=== PATIENT | female | born 1960 | race Caucasian/White ===

== ENCOUNTER 2016-12-12 16:48 | Emergency (ER) | payer BC ==
[2016-12-12 17:00] VITALS: PULSE 78; TEMP 97.9; BMI 35.1
[2016-12-12] MEDS ORDERED: ONDANSETRON 4 MG/2 ML VIAL IVPB ONE (17:06)
[2016-12-12] MEDS ORDERED: SODIUM CHLORIDE 1,000 ML IV STA (17:06)
[2016-12-12] MEDS ORDERED: morphine CARPU-JECT 4 MG/1 ML DISP.SYRIN IVPUSH ONE (17:06)
[2016-12-12] MEDS ORDERED: FAMOTIDINE 20 MG/50 ML IVPB 50 ML IVPB ONE ×2 (17:17→18:18)
[2016-12-12] MEDS ORDERED: morphine CARPU-JECT 4 MG/1 ML DISP.SYRIN ONE (17:17)
--- NOTE | 2016-12-12 17:17 | PDOC ---
[id number] is a 56 year old female with history of cholecystitis s/p cholecystectomy, GERD, who presents to the ED complaining of approximately 4 days of intermittent diffuse upper abdominal pain, sharp in nature, not radiating or migrating ranked 10/10 in intensity on ED arrival. She states her pain is not associated with eating or positional changes. The patient was seen by her PCP for this same complaint but the bloodwork results are still pending. This morning she was feeling in her usual state of health but had a sudden exacerbation around 2PM, prompting her to come to the ED. She states she has logan taking Pepcid with persistence of her symptoms. The patient denies nausea, vomiting, or diarrhea. She denies chest pain or shortness of breath. She denies fever, chills, or diaphoresis. Her pain is not consistent with her previous GERD or cholecystitis. PCP is out of hospital network. <Kalani Perez - Last Filed: 12/12/16 20:34> - General History Source: Patient Exam Limitations: No Limitations <Steve Marshall - Last Filed: 12/15/16 09:30> - General Chief Complaint: Pain Stated Complaint: ABD PAIN Time Seen by Provider: 12/12/16 17:01 Past History <Kalani Perez - Last Filed: 12/12/16 20:34> - Past Medical History Other medical history: none - Surgical History Cholecystectomy: Yes (with complication) - Psycho/Social/Smoking Cessation Hx Anxiety: No Suicidal Ideation: No Smoking History: Never smoked Have you smoked in the past 12 months: No Information on smoking cessation initiated: No Hx Alcohol Use: No Drug/Substance Use Hx: No Substance Use Type: None <Steve Marshall - Last Filed: 12/15/16 09:30> - Past Medical History Allergies/Adverse Reactions: Allergies Allergy/AdvReac Type Severity Reaction Status Date / Time No Known Allergies Allergy Verified 12/12/16 16:55 Home Medications: Ambulatory Orders NK [No Known Home Medication] 12/13/16 Review of Systems - Review of Systems Able to Perform ROS?: Yes Comments:: 12/12/16 17:26 GENERAL/CONSTITUTIONAL: No fever or chills. No weakness. HEAD, EYES, EARS, NOSE AND THROAT: No change in vision. No ear pain or discharge. No sore throat CARDIOVASCULAR: No chest pain or shortness of breath. RESPIRATORY: No cough, wheezing, or hemoptysis. GASTROINTESTINAL: +Upper abdominal pain. No nausea, vomiting, diarrhea or constipation. GENITOURINARY: No dysuria, frequency, or change in urination. MUSCULOSKELETAL: No joint or muscle swelling or pain. No neck or back pain. SKIN: No rash NEUROLOGIC: No headache, vertigo, loss of consciousness, or change in strength/ sensation. ENDOCRINE: No increased thirst. No abnormal weight change. HEMATOLOGIC/LYMPHATIC: No anemia, easy bleeding, or history of blood clots. ALLERGIC/IMMUNOLOGIC: No hives or skin allergy. <Kalani Perez - Last Filed: 12/12/16 20:34> *Physical Exam - Vital Signs Last Vital Signs Temp Pulse Resp BP Pulse Ox 97.9 F 78 18 151/94 100 12/12/16 16:56 12/12/16 16:56 12/12/16 16:56 12/12/16 16:56 12/12/16 16:56 - Physical Exam Comments: 12/12/16 17:28 GENERAL: Awake, alert, and fully oriented. Uncomfortable appearing. HEAD: No signs of trauma EYES: PERRLA, EOMI, sclera anicteric, conjunctiva clear ENT: Auricles normal inspection, hearing grossly normal, nares patent, oropharynx clear without exudates. Moist mucosa NECK: Normal ROM, supple, no lymphadenopathy, JVD, or masses LUNGS: Breath sounds equal, clear to auscultation bilaterally. No wheezes, and no crackles HEART: Regular rate and rhythm, normal S1 and S2, no murmurs, rubs or gallops ABDOMEN: Tenderness to palpation of the RUQ, epigastrium, and LUQ. Soft, normoactive bowel sounds. No guarding, no rebound. No masses EXTREMITIES: Normal range of motion, no edema. No clubbing or cyanosis. No cords, erythema, or tenderness NEUROLOGICAL: Cranial nerves II through XII grossly intact. Normal speech, normal gait SKIN: Warm, Dry, normal turgor, no rashes or lesions noted. <Kalani Perez - Last Filed: 12/12/16 20:34> - Vital Signs Last Vital Signs Temp Pulse Resp BP Pulse Ox 97.9 F 78 18 151/94 100 12/12/16 16:56 12/12/16 16:56 12/12/16 16:56 12/12/16 16:56 12/12/16 16:56 <Steve Marshall - Last Filed: 12/15/16 09:30> Heart Score/ECG Review #1 ECG reviewed & interpreted by me at: 17:40 12/12/16 17:48 NSR 68, TWI III, no std/gasper, normal axis, normal intervals, QTC 448 msec <Steve Marshall - Last Filed: 12/15/16 09:30> ED Treatment Course - LABORATORY CBC & Chemistry Diagram: 12/12/16 17:15 12/12/16 17:15 - RADIOLOGY Radiograph Interpretation: 12/12/16 20:34 RUQ US, read and reviewed by Imaging Nursery Attendant Services FINDINGS: There is fatty change in the liver. There is prior cholecystectomy. Common bile duct diameter within normal limits. 1.5 cm bilobed cystic findings noted in the body of the pancreas of undetermined significance. There is no hydronephrosis on the right. The abdominal aorta is non-aneurysmal. THIS DOCUMENT HAS BEEN ELECTRONICALLY SIGNED Richard Lamar MD 12/12/2016 20:10 EST <Kalani Perez - Last Filed: 12/12/16 20:34> - LABORATORY CBC & Chemistry Diagram: 12/12/16 17:15 12/12/16 17:15 - RADIOLOGY Radiology Studies Ordered: Category Date Time Status ABDOMEN US -LIMITED [US] Stat Ultrasound 12/12/16 17:06 Ordered <Steve Marshall - Last Filed: 12/15/16 09:30> Medical Decision Making - Medical Decision Making 12/12/16 17:15 A portion of this note was documented by scribe services under my direction. I have reviewed the details of the note, within reason, and agree with the documentation with the following case summary and management plan written by me. Patient treated in the ED. Nursing notes are reviewed and incorporated into the medical decision-making. Vital signs reviewed. Peripheral IV access obtained by the nurse, laboratory studies are drawn and sent, reviewed and interpreted by myself. Vital Signs Temp Pulse Resp BP Pulse Ox 97.9 F 78 18 151/94 100 12/12/16 16:56 12/12/16 16:56 12/12/16 16:56 12/12/16 16:56 12/12/16 16:56 56-year-old female with past medical history of cholecystitis, GERD presents to the emergency department for recurrence of right upper quadrant pain. Patient reports that in the last 2 days, the patient has been having intermittent right upper quadrant and epigastric pain that would occur 30 minutes in duration and resolve on its own. Not associated with eating, nausea, vomiting, diarrhea. Patient seen her primary care physicians with the true blood work and hadn't right upper ultrasound with the patient is not received results. Stated that at 2 PM today, the patient has had severe uncontrollable pain. Came into the ED. Denies fevers. Differential includes retained gallstone, choledocholithiasis, pancreatitis, gastritis. We'll obtain labs, right upper quadrant US. Given the severity of pain, the workup is negative, I should consider CAT scan the abdomen pelvis. 12/12/16 22:14 CBC, BMP 12/12/16 17:15 12/12/16 17:15 CMP Sodium 137 mmol/L (136-145) 12/12/16 17:15 Potassium 3.8 mmol/L (3.5-5.1) 12/12/16 17:15 Chloride 102 mmol/L (98-107) 12/12/16 17:15 Carbon Dioxide 24 mmol/L (21-32) 12/12/16 17:15 Anion Gap 11 (8-16) 12/12/16 17:15 BUN 8 mg/dL (7-18) 12/12/16 17:15 Creatinine 0.8 mg/dL (0.55-1.02) 12/12/16 17:15 Creat Clearance w eGFR > 60 (>60) 12/12/16 17:15 Random Glucose 122 mg/dL (74-106) H 12/12/16 17:15 Calcium 9.3 mg/dL (8.5-10.1) 12/12/16 17:15 Magnesium 2.0 mg/dL (1.8-2.4) 12/12/16 17:15 Total Bilirubin 0.9 mg/dL (0.2-1.0) 12/12/16 17:15 AST 251 U/L (15-37) H 12/12/16 17:15 ALT 142 U/L (12-78) H 12/12/16 17:15 Alkaline Phosphatase 165 U/L (45-117) H 12/12/16 17:15 Creatine Kinase 97 IU/L (26-192) 12/12/16 17:15 Troponin I < 0.02 ng/ml (0.00-0.05) 12/12/16 17:15 Total Protein 7.4 g/dl (6.4-8.2) 12/12/16 17:15 Albumin 3.8 g/dl (3.4-5.0) 12/12/16 17:15 Lipase 242 U/L (73-393) 12/12/16 17:15 Urine Test Results Urine Color Straw 12/12/16 19:50 Urine Appearance Clear 12/12/16 19:50 Urine pH 8.0 (5.0-8.0) 12/12/16 19:50 Ur Specific [place] 1.006 (1.001-1.035) 12/12/16 19:50 Urine Protein Negative (NEGATIVE) 12/12/16 19:50 Urine Glucose (UA) Negative (NEGATIVE) 12/12/16 19:50 Urine Ketones Negative (NEGATIVE) 12/12/16 19:50 Urine Blood Negative (NEGATIVE) 12/12/16 19:50 Urine Nitrite Negative (NEGATIVE) 12/12/16 19:50 Urine Bilirubin Negative (NEGATIVE) 12/12/16 19:50 Ur Leukocyte Esterase 1+ (NEGATIVE) H 12/12/16 19:50 Urine RBC <1 /hpf (0-3) 12/12/16 19:50 Urine WBC 7 /hpf (3-5) 12/12/16 19:50 Urine Bacteria Rare /hpf (NONE SEEN) 12/12/16 19:50 Pt's liver transaminases are slightly elevated. The patient's pain however improved dramatically with the medications. Ultrasound was obtained. Demonstrated a fatty liver and pancreatic cyst. CT scan of abdomen and pelvi performed. Possibly mild ileus or enteritis but no other findings. The patient reports feeling better. It may be possible that this was GERD, gastritis, or perhaps peptic ulcer. Will prescribe protonix, maalox. patient already has pepcid at home. I did instruct the patient and her that if her symptoms are worsening or she is developing fevers, she should return to the ER for further evaluation. I did let the patient know about her liver enzymes. Patient has a copy of the results and will follow up with her doctor. I discussed the physical exam findings, ancillary test results and final diagnoses with the patient. I answered all of the patient's questions. The patient was satisfied with the care received and felt comfortable with the discharge plan and treatment plan. The patient will call their primary care physician within 24 hours to arrange follow-up and will return to the Emergency Department with any new, persistant or worsening symptoms. <Steve Marshall - Last Filed: 12/15/16 09:30> *DC/Admit/Observation/Transfer - Attestations Scribe Attestion: 12/12/16 17:28 Documentation prepared by Kalani Perez, acting as medical records coder for Steve Marshall MD. <Kalani Perez - Last Filed: 12/12/16 20:34> - Discharge Dispostion Admit: No <Steve Marshall - Last Filed: 12/15/16 09:30> Diagnosis at time of Disposition: Abdominal pain Gastritis Qualifiers: Gastritis type: unspecified gastritis Chronicity: acute Gastritis bleeding: without bleeding Qualified Code(s): K29.00 - Acute gastritis without bleeding - Discharge Dispostion Disposition: HOME Condition at time of disposition: Improved - Referrals Referrals: Nakul Marquez [Primary Care Provider] - - Patient Instructions Printed Discharge Instructions: DI for Abdominal Pain-Adult, DI for Gastroesophageal Reflux Disease (GERD) Additional Instructions: Please take the 40 mg protonix daily. You may take 20 mg pepcid ever 12 hours and/or 30 cc of maalox every 6 hours as needed for pain. If you develop uncontrollable abdominal pain, persistent vomiting, fevers, please return to the ER. Otherwise, please go to your doctor's office. Let him/her know about the mildly elevated liver enzymes.
[2016-12-12] MEDS ORDERED: ONDANSETRON 4 MG/2 ML VIAL ONE (17:18)
[2016-12-12 17:26] LABS: BASOPHIL 0.9 % (0-2.0); MCH 26.6 pg (25.7-33.7); MCHC 34.1 g/dl (32.0-36.0); MEAN CELL VOLUME 77.9 fl (80-96); MEAN PLT VOLUME 6.7 fl (7.5-11.1); PLATELET COUNT 341 K/MM3 (134-434); RDW 14.9 % (11.6-15.6); WHITE BLOOD COUNT 10.8 K/mm3 (4.0-10.0)
[2016-12-12 17:48] LABS: INR 1.13 (0.82-1.09); PROTHROMBIN TIME (PATIENT) 12.5 SEC (9.98-11.88)
[2016-12-12 17:50] LABS: ACTIVATED PTT 37.9 SECONDS (26.9-34.4)
[2016-12-12 17:51] LABS: ALBUMIN 3.8 g/dl (3.4-5.0); ANION GAP 11 (8-16); BILIRUBIN,TOTAL 0.9 mg/dL (0.2-1.0); CALCIUM 9.3 mg/dL (8.5-10.1); CO2 24 mmol/L (21-32); CREATININE 0.8 mg/dL (0.55-1.02); GLUCOSE,RANDOM 122 mg/dL (74-106); SGOT/AST 251 U/L (15-37); SGPT/ALT 142 U/L (12-78); TOT PROT 7.4 g/dl (6.4-8.2)
[2016-12-12 17:55] LABS: ALK PHOS 165 U/L (45-117); TROPONIN I < 0.02 ng/ml (0.00-0.05)
[2016-12-12 20:22] LABS: URINE APPEARANCE CLEAR; URINE BILIRUBIN NEGATIVE (NEGATIVE); URINE BLOOD NEGATIVE (NEGATIVE); URINE COLOR STRAW; URINE GLUCOSE (UA) NEGATIVE (NEGATIVE); URINE KETONE NEGATIVE (NEGATIVE); URINE NITRITE NEGATIVE (NEGATIVE); URINE PROTEIN NEGATIVE (NEGATIVE); URINE UROBILINOGEN NEGATIVE E.U./dl (0.2-1.0)
[2016-12-12 20:23] LABS: URINE LEUK ESTERASE 1+ (NEGATIVE)
[2016-12-12 20:28] LABS: URINE BACTERIA RARE /hpf (NONE SEEN); URINE RBC <1 /hpf (0-3); URINE WBC 7 /hpf (3-5)
[2016-12-12] MEDS ORDERED: MAG HYDROX/AL HYDROX/SIMETH 30 ML UNIT-DOSE CUP PO ONE (22:15)
[2016-12-12] MEDS ORDERED: PANTOPRAZOLE 40 MG TABLET (FP) PO ONE (22:15)
[2016-12-12 22:18] VITALS: BP 131/67
[2016-12-12] MEDS ORDERED: MAG HYDROX/AL HYDROX/SIMETH 30 ML UNIT-DOSE CUP ONE (22:18)
[2016-12-12] MEDS ORDERED: PANTOPRAZOLE 40 MG TABLET (FP) ONE (22:18)
--- NOTE | 2016-12-15 07:24 | EKG ---
Test Reason : Blood Pressure : / mmHG Vent. Rate : 068 BPM Atrial Rate : 068 BPM P-R Int : 156 ms QRS Dur : 090 ms QT Int : 422 ms P-R-T Axes : 027 -02 025 degrees QTc Int : 448 ms POOR DATA QUALITY, INTERPRETATION MAY BE ADVERSELY AFFECTED NORMAL SINUS RHYTHM NORMAL ECG NO PREVIOUS ECGS AVAILABLE Confirmed by FERNANDO HYED, MARICARMEN (2016) on 12/15/2016 7:24:18 AM Referred By: Confirmed By:MRAICARMEN KING MD
== END 2016-12-12 22:25 | disposition home or self-care (01) ==
LOC: JER 16:48
PROC: 3E033GC Introduction of Other Therapeutic Substance into Peripheral Vein, Percutaneous Approach (ICD-10-PCS; principal; 2016-12-12)
PROC: 3E033NZ Introduction of Analgesics, Hypnotics, Sedatives into Peripheral Vein, Percutaneous Approach (ICD-10-PCS; 2016-12-12)
PROC: 3E033GC Introduction of Other Therapeutic Substance into Peripheral Vein, Percutaneous Approach (ICD-10-PCS; 2016-12-12)
DX: K29.00 Acute gastritis without bleeding (principal)
CPT/HCPCS: 36415; 74177-TC; 76705-TC; 80053; 81003; 81015; 82550; 83690; 83735; 84484; 85025; 85610; 85730; 93005; 93010; 99283-25

== ENCOUNTER 2016-12-13 06:43 | Inpatient (IN) | payer BC ==
[2016-12-13 06:57] VITALS: BMI 36.2
--- NOTE | 2016-12-13 07:42 | PDOC ---
History of Present Illness - General Chief Complaint: Pain, Acute Stated Complaint: ABDOMINAL PAIN Time Seen by Provider: 12/13/16 07:19 - History of Present Illness Initial Comments: 12/13/16 07:38 56-year-old female with past medical history of a cholecystectomy in 1998 She states that the surgeon accidentally cut her common duct, and she had to have an endoscopy and a stent placed in her common bile duct She states that she has done well since then She also has a prior history of a There is no history of any cardiac disease, hypertension, diabetes or hyperlipidemia Patient is complaining of upper midepigastric pain, radiating to the right upper quadrant and left upper quadrant, onset at 2 PM yesterday, 2 hours after eating at 12 noon She states the pain was constant and associated with nausea, but without vomiting or diarrhea She denies any dysuria urgency or frequency She denies any radiation to her back She denies any radiation to her chest She states the pain was constant, and then it became severe, prompting her to come to the emergency department at approximately 5:30 last evening During the course of her ER evaluation, she had a CT scan of the abdomen and pelvis with contrast, which was read by imaging spare person Reading from imaging spare person "There is no free air, there is a prior cholecystectomy, there is an incidental 8 mm cyst in the left lobe of the liver There is no hydronephrosis, there is no renal calculi There are a few mildly prominent fluid-filled small bowel loops in the lower abdomen, possibly mild ileus/enteritis There is no obstruction There is sigmoid diverticulosis without diverticulitis The appendix is normal An ultrasound was also done This was read by imaging spare person Reading from imaging spare person "There is fatty changes in the liver, there is a prior cholecystectomy The common bile duct diameter is within normal limits There is a 1.5 cm bilobed cyst/cystic findings in the bodies of the pancreas of undetermined significance There is no hydronephrosis on the right The abdominal aorta is normal Labwork from last evening was reviewed by me Significant for white count of 10.8 Elevated LFTs, with an AST of 251, and ALT of 142, and alkaline phosphatase of 165, and a total bili of 0.9 First set of cardiac enzymes were negative Lipase 242 UA essentially negative Patient states she was given pain medication in the emergency department and felt better, but as she was about to leave and by the time she got home the pain recurred and became severe again, prompting her to come back to the emergency department this morning She denies any fever with this She states the pain is unchanged and in the same location She again feels nauseated but has not had any vomiting or diarrhea Past History - Past Medical History Allergies/Adverse Reactions: Allergies Allergy/AdvReac Type Severity Reaction Status Date / Time No Known Allergies Allergy Verified 12/13/16 06:45 Home Medications: Ambulatory Orders NK [No Known Home Medication] 12/13/16 - Surgical History Cholecystectomy: Yes (with complication) - Psycho/Social/Smoking Cessation Hx Anxiety: No Suicidal Ideation: No Smoking History: Never smoked Have you smoked in the past 12 months: No Hx Alcohol Use: No Drug/Substance Use Hx: No Substance Use Type: None Review of Systems - Review of Systems Able to Perform ROS?: Yes Comments:: 12/13/16 07:46 12 point review of systems is as per history of present illness and otherwise negative *Physical Exam - Vital Signs Last Vital Signs Temp Pulse Resp BP Pulse Ox 98.4 F 78 18 149/82 99 12/13/16 06:54 12/13/16 06:54 12/13/16 06:54 12/13/16 06:54 12/13/16 06:54 - Physical Exam Comments: 12/13/16 07:46 Physical exam Last Vital Signs Temp Pulse Resp BP Pulse Ox 98.4 F 78 18 149/82 99 12/13/16 06:54 12/13/16 06:54 12/13/16 06:54 12/13/16 06:54 12/13/16 06:54 GENERAL: The patient is awake, alert, and fully oriented, and in no apparent distress. HEAD: Normal with no signs of trauma. EYES: sclera anicteric, conjunctiva are normal. ENT: Moist mucous membranes. NECK: Normal range of motion, supple LUNGS: Breath sounds equal, clear to auscultation bilaterally. No wheezes, and no crackles. HEART: Regular rate and rhythm, normal S1 and S2 without murmur, rub or gallop. ABDOMEN: The abdomen is soft, with hypoactive but present bowel sounds There is upper midepigastric and right upper quadrant tenderness, and to a lesser extent left upper quadrant tenderness to palpation without guarding or rebound There is no hepatosplenomegaly There is no abdominal tenderness below the umbilicus There is no lower abdominal tenderness There is no CVA tenderness EXTREMITIES: Normal range of motion, no edema. No clubbing or cyanosis. No cords, erythema, or tenderness. NEUROLOGICAL: Cranial nerves II through XII grossly intact. Normal speech, normal gait. PSYCH: Normal mood, normal affect. SKIN: Warm, Dry, normal turgor, no rashes or lesions noted. ED Treatment Course - LABORATORY CBC & Chemistry Diagram: 12/13/16 08:03 12/13/16 08:03 Medical Decision Making - Medical Decision Making 12/13/16 10:00 I reviewed yesterday's ultrasound with remote sensing technologist The common bile duct and the pancreatic duct were seen, and the were normal on yesterday evenings ultrasound 12/13/16 10:01 LFTs are increasing when compared to yesterday's lab work Laboratory Results - last 24 hr 12/13/16 12/13/16 08:03 08:03 WBC 10.2 H RBC 5.01 Hgb 13.1 Hct 38.9 MCV 77.7 L MCHC 33.7 RDW 15.2 Plt Count 314 MPV 6.8 L Sodium 139 Potassium 4.1 Chloride 103 Carbon Dioxide 24 Anion Gap 12 BUN 6 L D Creatinine 0.7 Creat Clearance w eGFR > 60 Random Glucose 111 H Calcium 8.9 Total Bilirubin 1.6 H D AST 522 H D ALT 552 H D Alkaline Phosphatase 211 H D Creatine Kinase 90 Troponin I < 0.02 Total Protein 7.2 Albumin 3.6 Lipase 137 12/13/16 10:01 EKG Normal sinus rhythm 70, left axis deviation -2 Normal AV and IV conduction time Normal QTC Otherwise normal EKG 12/13/16 10:37 In light of the increasing LFTs, I did reorder the ultrasound Chest x-ray and ultrasound pending at this time Case discussed with hospitalist-will admit 12/13/16 12:09 CXR - NAD Given findings, may need MRI Awaiting GI callback *DC/Admit/Observation/Transfer Diagnosis at time of Disposition: Abdominal pain, Abnormal LFTs, Pancreatic abnormality - Discharge Dispostion Admit: Yes
[2016-12-13] MEDS ORDERED: SODIUM CHLORIDE 1,000 ML IV STA (07:45)
[2016-12-13] MEDS ORDERED: HYDROmorphone HCL CARPU-JECT 1 MG/1 ML DISP.SYRIN IVPUSH ONE (07:45)
[2016-12-13] MEDS ORDERED: ONDANSETRON 4 MG/2 ML VIAL IVPB ONE (07:46)
[2016-12-13] MEDS ORDERED: HYDROmorphone HCL CARPU-JECT 1 MG/1 ML DISP.SYRIN ONE (07:49)
[2016-12-13] MEDS ORDERED: ONDANSETRON 4 MG/2 ML VIAL ONE (07:50)
[2016-12-13 08:35] LABS: MCH 26.2 pg (25.7-33.7); MCHC 33.7 g/dl (32.0-36.0); MEAN CELL VOLUME 77.7 fl (80-96); MEAN PLT VOLUME 6.8 fl (7.5-11.1); PLATELET COUNT 314 K/MM3 (134-434); RDW 15.2 % (11.6-15.6); WHITE BLOOD COUNT 10.2 K/mm3 (4.0-10.0)
[2016-12-13 09:02] LABS: ALBUMIN 3.6 g/dl (3.4-5.0); ANION GAP 12 (8-16); CALCIUM 8.9 mg/dL (8.5-10.1); CO2 24 mmol/L (21-32); GLUCOSE,RANDOM 111 mg/dL (74-106)
[2016-12-13 09:08] LABS: ALK PHOS 211 U/L (45-117); BILIRUBIN,TOTAL 1.6 mg/dL (0.2-1.0); CREATININE 0.7 mg/dL (0.55-1.02); TOT PROT 7.2 g/dl (6.4-8.2); TROPONIN I < 0.02 ng/ml (0.00-0.05)
[2016-12-13 09:14] LABS: SGOT/AST 522 U/L (15-37); SGPT/ALT 552 U/L (12-78)
--- NOTE | 2016-12-13 11:10 | HP ---
CHIEF COMPLAINT: Abdominal pain RUQ and LUQ painx 24 hours PCP: Dr. Mancilla [facility] # cell [phone] HISTORY OF PRESENT ILLNESS: This 56 yr old female presents with epigastric pain and right UQ pain. She has a significant history of cholecystectomy in 1998 with a "cut" to her CBD requiring a stent via endoscopy post op. Since then she has done well. Now with pain has been going on for over week and she has been seen by her PMD at [facility] where she underwent an abd u/s and CT at [facility]. she was waiting for these results by her PMD however she developed worsening pain on 12/12 and was evaluated in [facility] ER. During her ER visit on 12/12 she underwent a u/s with noted 1.5 cm bilobed cyst findings in the pancreas, labs and CT with noted fatty liver, which were with benign findings. She was treated with morphine and discharged with instructions to follow up with her PMD. Once the morphine pain meds wore off, her pain was much worse and she returned to the ER this morning. During this evaluation she was noted to have marked elevated LFT, increased pain. She is now in for admission to [facility] surg and a consult with Dr. Roberts. During my admission, I received a phone call from Dr. Mancilla, her PMD who notified me re the radiology findings as an OP with a .9 x.9 x 1.3 "cyst in the pancreas with suspicions of ?neoplasm vs pseudocyst. She was unable to send report to be attached to report in [facility]. ER course was notable for: (1) abd pain RUQ (2) elevated LFT (3) cystic findings on pancreas Recent Travel: PAST MEDICAL HISTORY: none PAST SURGICAL HISTORY: cholecystectomy with a CBD stent c section 2 ectopic Social History: Smoking:denies Alcohol:denies Drugs: denies Family History: Allergies No Known Allergies Allergy (Verified 12/13/16 06:45) HOME MEDICATIONS: Home Medications Medication Instructions Recorded NK [No Known Home Medication] 12/13/16 REVIEW OF SYSTEMS CONSTITUTIONAL: Absent: fever, chills, diaphoresis, generalized weakness, malaise, loss of appetite, weight change HEENT: Absent: rhinorrhea, nasal congestion, throat pain, throat swelling, difficulty swallowing, mouth swelling, ear pain, eye pain, visual changes CARDIOVASCULAR: Absent: chest pain, syncope, palpitations, irregular heart rate, lightheadedness , peripheral edema RESPIRATORY: Absent: cough, shortness of breath, dyspnea with exertion, orthopnea, wheezing, stridor, hemoptysis GASTROINTESTINAL: Absent: abdominal pain, abdominal distension, nausea, vomiting, diarrhea, constipation, melena, hematochezia GENITOURINARY: Absent: dysuria, frequency, urgency, hesitancy, hematuria, flank pain, genital pain MUSCULOSKELETAL: Absent: myalgia, arthralgia, joint swelling, back pain, neck pain SKIN: Absent: rash, itching, pallor HEMATOLOGIC/IMMUNOLOGIC: Absent: easy bleeding, easy bruising, lymphadenopathy, frequent infections ENDOCRINE: Absent: unexplained weight gain, unexplained weight loss, heat intolerance, cold intolerance NEUROLOGIC: Absent: headache, focal weakness or paresthesias, dizziness, unsteady gait, seizure, mental status changes, bladder or bowel incontinence PSYCHIATRIC: Absent: anxiety, depression, suicidal or homicidal ideation, hallucinations. PHYSICAL EXAMINATION GENERAL: Awake, alert, and fully oriented, in mild pain acute distress. HEAD: Normal with no signs of trauma. EYES: Pupils equal, round and reactive to light, extraocular movements intact, sclera anicteric, conjunctiva clear. No lid lag. EARS, NOSE, THROAT: Ears normal, nares patent, oropharynx clear without exudates. Moist mucous membranes. NECK: Normal range of motion, supple without lymphadenopathy, JVD, or masses. LUNGS: Breath sounds equal, clear to auscultation bilaterally. No wheezes, and no crackles. No accessory muscle use. HEART: Regular rate and rhythm, normal S1 and S2 without murmur, rub or gallop. ABDOMEN: Soft, + RUQ and epigastric tender, not distended, normoactive bowel sounds, no guarding, no rebound, no masses. No hepatomegaly or splenomegaly. MUSCULOSKELETAL: Normal range of motion at all joints. No bony deformities or tenderness. No CVA tenderness. UPPER EXTREMITIES: 2+ pulses, warm, well-perfused. No cyanosis. No clubbing. No peripheral edema. LOWER EXTREMITIES: 2+ pulses, warm, well-perfused. No calf tenderness. No peripheral edema. NEUROLOGICAL: Cranial nerves II-XII intact. Normal speech. Normal gait. PSYCHIATRIC: Cooperative. Good eye contact. Appropriate mood and affect. SKIN: Warm, dry, normal turgor, no rashes or lesions noted, normal capillary refill. ASSESSMENT/PLAN: 56 yr old obese female with elevated LFT and abd pain 1. abd pain -pain management -continue pain medications 2. elevated LFT -consult GI, Dr. Roberts -monitor labs, LFT -NPO with IVF 3. DVT and GI prophalatic -ambulate -npo 4. cystic lesion on pancreas -MRCP -ABT Visit type - Emergency Visit Emergency Visit: Yes ED Registration Date: 12/13/16 Care time: The patient presented to the Emergency Department on the above date and was hospitalized for further evaluation of their emergent condition. - New Patient This patient is new to me today: Yes Date on this admission: 12/13/16 - Critical Care Critical Care patient: No
[2016-12-13 12:01] LABS: URINE APPEARANCE CLEAR; URINE BILIRUBIN NEGATIVE (NEGATIVE); URINE COLOR LTYELLOW; URINE GLUCOSE (UA) NEGATIVE (NEGATIVE); URINE KETONE TRACE (NEGATIVE); URINE NITRITE NEGATIVE (NEGATIVE); URINE PROTEIN NEGATIVE (NEGATIVE); URINE UROBILINOGEN NEGATIVE E.U./dl (0.2-1.0)
[2016-12-13 12:23] LABS: URINE BLOOD 1+ (NEGATIVE); URINE LEUK ESTERASE 2+ (NEGATIVE)
[2016-12-13 12:25] LABS: URINE MUCUS RARE; URINE RBC 1 /hpf (0-3); URINE WBC 7 /hpf (3-5)
[2016-12-13] MEDS ORDERED: morphine CARPU-JECT 4 MG/1 ML DISP.SYRIN ONE (12:28)
[2016-12-13] MEDS ORDERED: PIPERACILLIN/TAZOB 3.375 GM/50 ML PRE-DOCKED IVPB ONE (12:30)
[2016-12-13] MEDS ORDERED: morphine CARPU-JECT 4 MG/1 ML DISP.SYRIN IVPUSH ONE (12:36)
[2016-12-13] MEDS ORDERED: HYDROmorphone HCL CARPU-JECT 1 MG/1 ML DISP.SYRIN IVPB PRN (13:13)
[2016-12-13] MEDS: SODIUM CHLORIDE 1,000 ML IV SCH (13:54)
--- NOTE | 2016-12-13 14:38 | CON.GI ---
Consult Consult Specialty:: GI Referred by:: Dr Pierce Reason for Consultation:: Abdominal pain - History of Present Illness Chief Complaint: Abdominal pain. History of Present Illness: 56 F with h/o cholecystectomy 1998 complicated by CBD injury necessitation stent placement. She did well post-op but a week ago, she developed epigastric/ RUQ pain which became severe. She came to the [facility] ER and was noted to have LFT' s in the 4-5 x normal range but a normal t bili and a normal CT. She also had mild leukocytosis. She was sent home on a PPI and told to return if the pain became worse. She returned the following day with markedly elevated LFT's and now with a t bili of 1.6. I ordered an MRI/MRCP which shows a dilated CBD, a stone in the distal CBD and 4 pancreatic cysts, possibly IPMN's. - History Source History Provided By: Patient, Medical Record Limitations to Obtaining History: No Limitations - Past Medical History Hepatobiliary: Yes: Cholelithiasis - Past Surgical History Past Surgical History: Yes: Cholecystectomy (1998 with CBD injury requiring stent) - Alcohol/Substance Use Hx Alcohol Use: No - Smoking History Smoking history: Never smoked Have you smoked in the past 12 months: No Home Medications - Allergies Allergies/Adverse Reactions: Allergies Allergy/AdvReac Type Severity Reaction Status Date / Time No Known Allergies Allergy Verified 12/13/16 06:45 - Home Medications Home Medications: Ambulatory Orders NK [No Known Home Medication] 12/13/16 Physical Exam-GI Vital Signs: Vital Signs Temperature 98.4 F 12/13/16 06:54 Pulse Rate 84 12/13/16 12:00 Respiratory Rate 18 12/13/16 12:00 Blood Pressure 145/83 12/13/16 12:00 O2 Sat by Pulse Oximetry (%) 100 12/13/16 12:00 Constitutional: Yes: Obese HENT: Yes: Normocephalic Neck: Yes: Supple Cardiovascular: Yes: Regular Rate and Rhythm Respiratory: Yes: CTA Bilaterally Gastrointestinal Inspection: Yes: WNL ...Auscultate: Yes: Normoactive Bowel Sounds ...Palpate: Yes: Soft, Tenderness, Epigastium Labs: CBC, BMP 12/13/16 08:03 12/13/16 08:03 Hepatic Panel Total Bilirubin 1.6 mg/dL (0.2-1.0) H D 12/13/16 08:03 AST 522 U/L (15-37) H D 12/13/16 08:03 ALT 552 U/L (12-78) H D 12/13/16 08:03 Alkaline Phosphatase 211 U/L (45-117) H D 12/13/16 08:03 Albumin 3.6 g/dl (3.4-5.0) 12/13/16 08:03 Imaging - Results MRI: Report Reviewed (Patient with CBD stone and 4 pancreatic cysts possibly IPMNs) Assessment/Plan 56 F with above history admitted with CBD stone and intra-pancreatic cysts PLAN: IV AbRx Clear liquid diet ERCP possibly tomorrow Stat coags Will need EUS as outpatient to address pancreatic lesions. CA19-9 Plan discussed with patient and she agrees
[2016-12-13 17:08] LABS: INR 1.3 (0.82-1.09); PROTHROMBIN TIME (PATIENT) 14.4 SEC (9.98-11.88)
[2016-12-13] MEDS: PIPERACILLIN/TAZOB 3.375 GM 50 ML IVPB SCH (18:05)
[2016-12-14] MEDS: PIPERACILLIN/TAZOB 3.375 GM 50 ML IVPB SCH ×3 (01:47→18:29)
[2016-12-14] MEDS: SODIUM CHLORIDE 1,000 ML IV SCH ×2 (01:47→10:40)
[2016-12-14 07:55] LABS: BASOPHIL 0.7 % (0-2.0); EOSINOPHIL 0.9 % (0-4.5); MCH 26.4 pg (25.7-33.7); MCHC 33.4 g/dl (32.0-36.0); MEAN PLT VOLUME 6.8 fl (7.5-11.1); NEUTROPHILS 76.2 % (42.8-82.8); PLATELET COUNT 228 K/MM3 (134-434); RDW 15.2 % (11.6-15.6); WHITE BLOOD COUNT 6.6 K/mm3 (4.0-10.0)
[2016-12-14 08:10] LABS: SGOT/AST 180 U/L (15-37)
[2016-12-14 08:19] LABS: ALBUMIN 3.2 g/dl (3.4-5.0); ALK PHOS 214 U/L (45-117); AMYLASE 46 U/L (25-115); ANION GAP 12 (8-16); BILIRUBIN,TOTAL 1.1 mg/dL (0.2-1.0); CALCIUM 8.6 mg/dL (8.5-10.1); CO2 24 mmol/L (21-32); CREATININE 0.6 mg/dL (0.55-1.02); GLUCOSE,RANDOM 101 mg/dL (74-106); PHOSPHOROUS 2.4 mg/dL (2.5-4.9); SGPT/ALT 340 U/L (12-78); TOT PROT 6.3 g/dl (6.4-8.2)
--- NOTE | 2016-12-14 16:00 | PN ---
Physical Exam: SUBJECTIVE: Patient seen and examined. States she feels well, denies abdominal pain. OBJECTIVE: Patient denies any abdominal pain, discomfort Vital Signs Period Temp Pulse Resp BP Sys/Tim Pulse Ox Last 24 Hr 99.6 F-99.9 F 73-89 18-20 127-131/55-74 93 GENERAL: The patient is awake, alert, and fully oriented, in no acute distress. HEAD: Normal with no signs of trauma. EYES: PERRL, extraocular movements intact, sclera anicteric, conjunctiva clear. No ptosis. ENT: Ears normal, nares patent, oropharynx clear without exudates, moist mucous membranes. NECK: Trachea midline, full range of motion, supple. LUNGS: Breath sounds equal, clear to auscultation bilaterally, no wheezes, no crackles, no accessory muscle use. HEART: Regular rate and rhythm ABDOMEN: Soft, nontender, nondistended, no abdominal pain on exam rebound, no hepatosplenomegaly, no masses. EXTREMITIES: warm, well-perfused, no edema. NEUROLOGICAL: Normal speech, gait not observed. PSYCH: Normal mood, normal affect. SKIN: Warm, dry, normal turgor, no rashes or lesions noted Laboratory Results - last 24 hr 12/13/16 12/14/16 12/14/16 15:50 05:31 05:31 WBC 6.6 D RBC 4.63 Hgb 12.2 Hct 36.6 MCV 79.0 L MCHC 33.4 RDW 15.2 Plt Count 228 D MPV 6.8 L Neutrophils % 76.2 Lymphocytes % 10.9 D Monocytes % 11.3 H Eosinophils % 0.9 Basophils % 0.7 INR 1.30 H Sodium 136 Potassium 3.7 Chloride 100 Carbon Dioxide 24 Anion Gap 12 BUN 5 L Creatinine 0.6 Creat Clearance w eGFR > 60 Random Glucose 101 Calcium 8.6 Phosphorus 2.4 L Magnesium 2.0 Total Bilirubin 1.1 H D AST 180 H D ALT 340 H D Alkaline Phosphatase 214 H Total Protein 6.3 L Albumin 3.2 L Total Amylase 46 Lipase 125 Active Medications Generic Name Dose Route Start Last Admin Trade Name Freq PRN Reason Stop Dose Admin Hydromorphone HCl 1 mg 12/13/16 13:13 Dilaudid Injection - IVPB Q6H PRN PAIN Sodium Chloride 1,000 mls @ 125 mls/hr 12/13/16 11:15 12/14/16 10:40 Normal Saline - IV 125 mls/hr ASDIR ANA Administration Piperacillin Sod/Tazobactam Sod 50 mls @ 100 mls/hr 12/13/16 18:00 12/14/16 10: 38 Zosyn 3.375gm Ivpb (Pre-Docked) IVPB 100 mls/hr Q8H-IV ANA Administration Protocol ASSESSMENT/PLAN: Patient is an 56 yr old female with a past cholecystectomy in 1998 with a "cut" to her CBD requiring a stent via endoscopy post op. She presented to the ED on 12/13/2016 with epigastric pain and RUQ pain for over a week and she has been seen by her PMD at [facility]. During this admission, she was noted to have marked elevated LFT, and increased abdominal pain. Imaging: MRCP 12/13/2016 - s/p cholecystectomy for pancreatic cysts are noted Chest Xray 12/13/2016 - no acute pathology GI: Abdominal Pain/Elevated LFTs - acute A/P: AST 522> 180 , ALT 552 >340 On Zosyn q8 ERCP tomorrow as per GI Tolerating clears Abdominal pain improving, as per patient Monitor pain levels, IV hydration with NS @ 125cc/hr Dilaudid for pain PRN F.E.N. Fludis: NS 125cc/hr Electrolytes within normal limits Nutrition: clears - advance per GI NPO @ midnight for ERCP in a.m. Prophylaxis: GI: Protonix IV DVT: SCDs, ambulation Disposition: Full Code. Requires inpatient hospitalization. Visit type - Emergency Visit Emergency Visit: Yes ED Registration Date: 12/13/16 Care time: The patient presented to the Emergency Department on the above date and was hospitalized for further evaluation of their emergent condition. - New Patient This patient is new to me today: Yes Date on this admission: 12/15/16 - Critical Care Critical Care patient: No - Discharge Referral Referred to [facility] No
[2016-12-14] MEDS: PANTOPRAZOLE SODIUM 100 ML IVPB SCH (17:29)
--- NOTE | 2016-12-14 19:15 | PN ---
GI Progress Note - Objective Vital Signs: Vital Signs Temperature 98.9 F 12/14/16 17:31 Pulse Rate 77 12/14/16 17:31 Respiratory Rate 20 12/14/16 17:31 Blood Pressure 149/81 12/14/16 17:31 O2 Sat by Pulse Oximetry (%) 97 12/14/16 09:00 Labs: CBC, BMP 12/14/16 05:31 12/14/16 05:31 INR, PTT INR 1.30 (0.82-1.09) H 12/13/16 15:50
--- NOTE | 2016-12-14 20:49 | PN ---
GI Progress Note Subjective: chart reviewed patient seen and examined. The abdominal pain has resolved. She is very hungry. - Objective Vital Signs: Vital Signs Temperature 98.9 F 12/14/16 17:31 Pulse Rate 77 12/14/16 17:31 Respiratory Rate 20 12/14/16 17:31 Blood Pressure 149/81 12/14/16 17:31 O2 Sat by Pulse Oximetry (%) 97 12/14/16 09:00 Constitutional: Other (over weight) Eyes: No: Sclera Icterus HENT: Yes: Atraumatic Neck: Yes: Supple Respiratory: Yes: CTA Bilaterally ...Palpate: Yes: Soft. No: Firm/Rigid, Guarding, Hepatomegaly, Mass, Pulsatile Mass, Splenomegaly, Tenderness Labs: CBC, BMP 12/14/16 05:31 12/14/16 05:31 INR, PTT INR 1.30 (0.82-1.09) H 12/13/16 15:50 Problem List - Problems (1) Common bile duct stone Assessment/Plan: R> for ERCP tomorrow, risk including pancreatitis was discussed at length, informed consent was obtained Code(s): K80.50 - CALCULUS OF BILE DUCT W/O CHOLANGITIS OR CHOLECYST W/O OBST (2) Pancreatic cyst Assessment/Plan: will discuss in am she will need an EUS as an out patient Code(s): K86.2 - CYST OF PANCREAS
[2016-12-14] MEDS ORDERED: KETOROLAC TROMETHAMINE 30 MG/1 ML VIAL IVPUSH ONE (21:02)
[2016-12-15] MEDS: PIPERACILLIN/TAZOB 3.375 GM 50 ML IVPB SCH ×3 (01:58→17:21)
[2016-12-15] MEDS: SODIUM CHLORIDE 1,000 ML IV SCH ×4 (06:49→23:53)
--- NOTE | 2016-12-15 07:24 | EKG ---
Test Reason : Blood Pressure : / mmHG Vent. Rate : 070 BPM Atrial Rate : 070 BPM P-R Int : 156 ms QRS Dur : 088 ms QT Int : 396 ms P-R-T Axes : 034 -02 017 degrees QTc Int : 427 ms NORMAL SINUS RHYTHM BORDERLINE LOW VOLTAGE QRS BORDERLINE ECG WHEN COMPARED WITH ECG OF 12-DEC-2016 17:37, NO SIGNIFICANT CHANGE WAS FOUND Confirmed by MARICARMEN KING MD ([id number]) on 12/15/2016 7:24:03 AM Referred By: Confirmed By:MARICARMEN KING MD
[2016-12-15 08:14] LABS: BASOPHIL 0.9 % (0-2.0); EOSINOPHIL 5.4 % (0-4.5); MCH 26.6 pg (25.7-33.7); MCHC 33.8 g/dl (32.0-36.0); MEAN CELL VOLUME 78.6 fl (80-96); MEAN PLT VOLUME 6.4 fl (7.5-11.1); NEUTROPHILS 56.4 % (42.8-82.8); PLATELET COUNT 238 K/MM3 (134-434); RDW 14.9 % (11.6-15.6); WHITE BLOOD COUNT 6.1 K/mm3 (4.0-10.0)
[2016-12-15 08:46] LABS: ALK PHOS 196 U/L (45-117); AMYLASE 43 U/L (25-115); ANION GAP 10 (8-16); BILIRUBIN,TOTAL 0.7 mg/dL (0.2-1.0); CALCIUM 8.5 mg/dL (8.5-10.1); CO2 24 mmol/L (21-32); CREATININE 0.6 mg/dL (0.55-1.02); GLUCOSE,RANDOM 97 mg/dL (74-106); SGOT/AST 66 U/L (15-37); SGPT/ALT 220 U/L (12-78); TOT PROT 6.4 g/dl (6.4-8.2)
[2016-12-15] MEDS: PANTOPRAZOLE SODIUM 100 ML IVPB SCH (10:10)
[2016-12-15] MEDS: KCL 10 MEQ IVPB 100 ML IVPB SCH ×2 (10:41→15:30)
[2016-12-15] MEDS ORDERED: ONDANSETRON 4 MG/2 ML VIAL ONE (12:50)
[2016-12-15] MEDS ORDERED: DEXAMETHASONE SOD PHOSPHATE 10 MG/1 ML VIAL ONE (12:50)
[2016-12-15] MEDS ORDERED: MIDAZOLAM HCL 2 MG/2 ML SINGLE DOSE VIAL ONE (12:50)
[2016-12-15] MEDS ORDERED: SUCCINYLCHOLINE CHLORIDE 200 MG/10 ML VIAL ONE (12:50)
[2016-12-15] MEDS ORDERED: INDOMETHACIN 50 MG RECTAL SUPPOSITORY PR ONE ×3 (13:13→14:12)
[2016-12-15] MEDS ORDERED: IOHEXOL 300 MG/ML INFUS..BTL IV ONE (13:52)
[2016-12-15] MEDS ORDERED: HYDROmorphone HCL CARPU-JECT 1 MG/1 ML DISP.SYRIN IVPB PRN (15:47)
--- NOTE | 2016-12-15 16:47 | PN ---
Physical Exam: SUBJECTIVE: Patient seen and examined. She is s/p ERCP today. Was seen prior to procedure, states she feels well, continues to deny any abdominal pain or discomfort. OBJECTIVE: CA 19-19 levels elevated s/p ERCP with stone removal Vital Signs Period Temp Pulse Resp BP Sys/Tim Pulse Ox Last 24 Hr 98.0 F-99.5 F 66-100 18-20 119-149/56-97 91-97 GENERAL: The patient is awake, alert, and fully oriented, in no acute distress. HEAD: Normal with no signs of trauma. EYES: PERRL, extraocular movements intact, sclera anicteric, conjunctiva clear. No ptosis. ENT: Ears normal, nares patent, oropharynx clear without exudates, moist mucous membranes. NECK: Trachea midline, full range of motion, supple. LUNGS: Breath sounds equal, clear to auscultation bilaterally, no wheezes, no crackles, no accessory muscle use. HEART: Regular rate and rhythm ABDOMEN: Soft, nontender, nondistended, no abdominal pain on exam rebound, no hepatosplenomegaly, no masses. EXTREMITIES: warm, well-perfused, no edema. NEUROLOGICAL: Normal speech, gait not observed. PSYCH: Normal mood, normal affect. SKIN: Warm, dry, normal turgor, no rashes or lesions noted Laboratory Results - last 24 hr 12/13/16 12/15/16 12/15/16 15:00 07:45 07:45 WBC 6.1 RBC 4.52 Hgb 12.0 Hct 35.5 MCV 78.6 L MCHC 33.8 RDW 14.9 Plt Count 238 MPV 6.4 L Neutrophils % 56.4 D Lymphocytes % 20.2 D Monocytes % 17.1 H Eosinophils % 5.4 H D Basophils % 0.9 Sodium 142 Potassium 3.3 L Chloride 108 H Carbon Dioxide 24 Anion Gap 10 BUN 6 L Creatinine 0.6 Creat Clearance w eGFR > 60 Random Glucose 97 Calcium 8.5 Total Bilirubin 0.7 D AST 66 H D ALT 220 H D Alkaline Phosphatase 196 H Total Protein 6.4 Albumin 3.0 L Total Amylase 43 Lipase 132 CA 19-9 Antigen 62 H Active Medications Generic Name Dose Route Start Last Admin Trade Name Freq PRN Reason Stop Dose Admin Hydromorphone HCl 1 mg 12/15/16 15:47 Dilaudid Injection - IVPB Q6H PRN PAIN Pantoprazole Sodium 100 mls @ 200 mls/hr 12/16/16 10:00 Protonix 40mg Ivpb (Pre-Docked) IVPB DAILY ANA Sodium Chloride 1,000 mls @ 125 mls/hr 12/15/16 15:47 12/15/16 16:05 Normal Saline - IV Not Given ASDIR ANA Piperacillin Sod/Tazobactam Sod 50 mls @ 100 mls/hr 12/15/16 18:00 Zosyn 3.375gm Ivpb (Pre-Docked) IVPB Q8H-IV ANA Protocol ASSESSMENT/PLAN: Patient is an 56 yr old female with a past cholecystectomy in 1998 with a "cut" to her CBD requiring a stent via endoscopy post op. She presented to the ED on 12/13/2016 with epigastric pain and RUQ pain for over a week and she has been seen by her PMD at [facility]. During this admission, she was noted to have marked elevated LFT, and increased abdominal pain. She is s/p ERCP today with spineterotomy with stone removal. Her CA 19-9 is also elevated @ 62. 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 Fludis: NS 125cc/hr Electrolytes: hyponatremia - 2 K riders Nutrition: clears - advance per GI Prophylaxis: GI: Protonix IV DVT: SCDs, ambulation Disposition: Full Code. Needs GI clearance prior to d/c. Requires inpatient hospitalization. Visit type - Emergency Visit Emergency Visit: Yes ED Registration Date: 12/13/16 Care time: The patient presented to the Emergency Department on the above date and was hospitalized for further evaluation of their emergent condition. - New Patient This patient is new to me today: No - Critical Care Critical Care patient: No - Discharge Referral Referred to [facility] No
[2016-12-15] MEDS ORDERED: POTASSIUM CHLORIDE TABS 20 MEQ TABLET.ER (FP) PO ONE (17:14)
[2016-12-16] MEDS: PIPERACILLIN/TAZOB 3.375 GM 50 ML IVPB SCH ×2 (02:35→09:15)
[2016-12-16 08:11] LABS: ALBUMIN 2.9 g/dl (3.4-5.0); ANION GAP 9 (8-16); BILIRUBIN,TOTAL 0.5 mg/dL (0.2-1.0); CO2 24 mmol/L (21-32); CREATININE 0.6 mg/dL (0.55-1.02); GLUCOSE,RANDOM 92 mg/dL (74-106); SGOT/AST 42 U/L (15-37); SGPT/ALT 177 U/L (12-78); TOT PROT 6.1 g/dl (6.4-8.2)
[2016-12-16 08:12] LABS: ALK PHOS 319 U/L (45-117)
[2016-12-16] MEDS ORDERED: PANTOPRAZOLE SODIUM 100 ML IVPB SCH (10:00)
[2016-12-16 10:36] VITALS: BP 132/83; PULSE 61; TEMP 98.1
--- NOTE | 2016-12-16 12:02 | PN ---
Progress Note (short form) - Note Progress Note: Anesthesia postop note 56 y/o F s/p GA for ercp POD#1, vss, aaox3, no complaints, awaiting to be discharged home. No anesthesia complications.
--- NOTE | 2016-12-16 12:26 | DS ---
Physical Exam: SUBJECTIVE: Patient seen and examined. She feels great, no acute complaints. She is tolerating food, she has made an appt with Dr. Mayfield. OBJECTIVE: Vital Signs Period Temp Pulse Resp BP Sys/Tim Pulse Ox Last 24 Hr 97.8 F-99.5 F 51-100 18-20 107-146/56-97 91-98 PHYSICAL EXAM GENERAL: The patient is awake, alert, and fully oriented, in no acute distress. HEAD: Normal with no signs of trauma. EYES: PERRL, extraocular movements intact, sclera anicteric, conjunctiva clear. ENT: Ears normal, nares patent, oropharynx clear without exudates, moist mucous membranes. NECK: Trachea midline, full range of motion, supple. LUNGS: Breath sounds equal, clear to auscultation bilaterally, no wheezes, no crackles, no accessory muscle use. HEART: Regular rate and rhythm, S1, S2 without murmur, rub or gallop. ABDOMEN: Soft, nontender, nondistended, normoactive bowel sounds, no guarding, no rebound, no hepatosplenomegaly, no masses. EXTREMITIES: 2+ pulses, warm, well-perfused, no edema. NEUROLOGICAL: Cranial nerves II through XII grossly intact. Normal speech, gait not observed. PSYCH: Normal mood, normal affect. SKIN: Warm, dry, normal turgor, no rashes or lesions noted. Laboratory Results - last 24 hr 12/16/16 06:30 Sodium 142 Potassium 4.3 D Chloride 109 H Carbon Dioxide 24 Anion Gap 9 BUN 10 D Creatinine 0.6 Creat Clearance w eGFR > 60 Random Glucose 92 Calcium 9.0 Total Bilirubin 0.5 D AST 42 H D ALT 177 H Alkaline Phosphatase 319 H D Total Protein 6.1 L Albumin 2.9 L HOSPITAL COURSE: Date of Admission:12/13/16 Date of Discharge: 12/16/16 Minutes to complete discharge: 35 Discharge Summary Reason For Visit: ABDOMINAL PAIN/ ABNORMAL LFT Current Active Problems Abdominal pain (Acute) Abnormal LFTs (Acute) Common bile duct stone (Acute) Pancreatic abnormality (Acute) Pancreatic cyst (Acute) Hospital Course: Initial Hospital Course: Briefly, this a 56 year old female admitted with epigastric pain and RUQ pain for 1 week. She has history of cholecystectomy in 1998 with a "cut" to her CBD requiring a stent via endoscopy post op. Since then she has done well. For her pain she went to see her PCP at [facility] [place] CTAP at that time showed OP with a .9 x.9 x 1.3 "cyst in the pancreas with suspicions of ?neoplasm vs pseudocyst on 12/12 her pain worsened and she was sent to the ED. 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 Common bile duct stone - ERCP 11/14/16 spineterotomy with stone removal 2. Pancreatitc cyst - ca 19-9 elevated 62 - LFT's downtrended - Outpt follow up with Dr. Mayfield no need for further abx Dispo: - Home with outpt follow up, pt aware and agrees to above plan Condition: Stable - Instructions Diet, Activity, Other Instructions: Please return to the ED for any new, persistent, or worsening symptoms. Follow up with your PCP in 1 week Keep scheduled appt with Dr. Mayfield for this week for continued work up and management Referrals: Vijay Mayfield MD [Staff Physician] - (Dr. [facility] # cell ) STAFF,NOT ON [Primary Care Provider] - Disposition: HOME - Home Medications Comprehensive Discharge Medication List: Ambulatory Orders NK [No Known Home Medication] 12/13/16 This patient is new to me today: Yes Date on this admission: 12/16/16 Emergency Visit: Yes ED Registration Date: 12/13/16 Care time: The patient presented to the Emergency Department on the above date and was hospitalized for further evaluation of their emergent condition. Critical Care patient: No - Discharge Referral Referred to [facility] No
[2016-12-16 12:59] LABS: BASOPHIL 0.3 % (0-2.0); EOSINOPHIL 0.5 % (0-4.5); MCH 26.2 pg (25.7-33.7); MCHC 32.9 g/dl (32.0-36.0); MEAN CELL VOLUME 79.6 fl (80-96); MEAN PLT VOLUME 7.1 fl (7.5-11.1); NEUTROPHILS 69.6 % (42.8-82.8); PLATELET COUNT 249 K/MM3 (134-434); RDW 15.3 % (11.6-15.6); WHITE BLOOD COUNT 7.9 K/mm3 (4.0-10.0)
== END 2016-12-16 12:57 | disposition home or self-care (01) | DRG 445 ==
LOC: JER 06:43 → JERBED 10:41 → J5S 13:40
PROVIDERS: ADMIT Internal Medicine; ATTEND Nurse Practitioner Acute Care
PROC: 0F798ZZ Dilation of Common Bile Duct, Via Natural or Artificial Opening Endoscopic (ICD-10-PCS; 2016-12-15)
PROC: 0FC98ZZ Extirpation of Matter from Common Bile Duct, Via Natural or Artificial Opening Endoscopic (ICD-10-PCS; principal; 2016-12-15 11:30)
DX: K80.50 Calculus of bile duct without cholangitis or cholecystitis without obstruction (principal); K86.2 Cyst of pancreas; E87.1 Hypo-osmolality and hyponatremia; E66.9 Obesity, unspecified; Z68.36 Body mass index [BMI] 36.0-36.9, adult
CPT/HCPCS: 36415; 71010-TC; 74182-TC; 74330-TC; 80053; 81003; 81015; 82150; 82550; 83690; 83735; 84100; 84484; 85025; 85027; 85610; 86301; 93005; 93010; 99283-25